=== PATIENT | male | born 1980 | race Caucasian/White ===

== ENCOUNTER 2016-10-31 19:42 | Inpatient (IN) | payer OTHER ==
--- NOTE | ~2016-10-31 | CO ---
Unit #: [id number] #: [id number] Patient: YUDITH CASTILLO [id number] [place] [address] [id number] MR#: [id number] NAME: YUDITH CASTILLO ROOM: [facility] Age: 36 Sex: M Admission Date: 10/31/2016 : 1980 Attending Physician: Slava Pandya M.D. Consultation Date: 11/02/2016 CONSULTATION REPORT SUBJECTIVE Patricio is a 36-year-old with history of IV drug use and hepatitis C. We have been asked to see him for "abnormal labs." In reviewing his labs, the AST/ALT is elevated at 68/76, this would be consistent with his diagnosis of hepatitis C. Dictated by... Latoya Villatoro P.A.-C. for Jameson Ascencio/ton TD: 11/03/2016 02:48 JOB #: [id number] CONSULTATION REPORT Page 1 of 1 X Latoya Villatoro CONSULTATION REPORT
--- NOTE | ~2016-10-31 | PA ---
Unit #: [id number] #: [id number] Patient: YUDITH CASTILLO [id number] [facility] [address] [place] [address] [id number] MR#: [id number] NAME: YUDITH CASTILLO ROOM: [facility] Age: 36 Sex: M Admission Date: 10/31/2016 : 1980 Date of Assessment: 11/01/2016 Attending Physician: Slava Pandya M.D. Admitting Physician: Slava Pandya M.D. Primary Care Physician: Primary Care Physician No PSYCHIATRIC ASSESSMENT DATE 11/01/2016 DISCUSSION The patient is a 36-year-old single white male admitted to the [facility] unit with a history of abuse of heroin and methamphetamine. CHIEF COMPLAINT None given. INFORMANT Patient. RELIABILITY Fair. HISTORY OF PRESENT ILLNESS The patient is a 36-year-old white male admitted with a 4-year history of intravenous heroin abuse. He has been in chemical dependence treatment in the past, but has maintained sobriety for no significant period of time stating that he "went back to the person I was with." Patient reports that because of his heroin use he has lost his job and his home and his children and he is most distressed by this but denies suicidal or homicidal ideation. He denies prior treatment for depressive illness and is no prescribed psychotropic or other medications at this time. He complains of recent poor sleep and denies loss of appetite. PAST PSYCHIATRIC HISTORY Patient was treated at this facility approximately one year ago and maintained sobriety for about one month. PAST MEDICAL HISTORY Noncontributory. MEDICATIONS None. ALLERGIES None. FAMILY HISTORY Noncontributory. Unit #: [id number] #: [id number] Patient: YUDITH CASTILLO SOCIAL HISTORY The patient completed the 9th grade. He is the father of two out of wedlock children. He reports substance use as noted previously and is a smoker. He has been incarcerated in the past on drug related charges. MENTAL STATUS EXAMINATION At this time reveals the patient to be a well developed, well nourished white male appearing his stated age. He appears to be in significant physical distress of opiate withdrawal during interview. He is awake, alert and oriented in all spheres. His mood is mildly dysphoric. His affect is congruent. Speech is generally well and coherent. No gross deficits in memory or cognition noted. Intelligence is judged to be in the average range based on fund of knowledge. The patient is cooperative throughout the interview. He is currently reporting no suicidal or homicidal ideation or psychotic features. Judgment and insight appear to be intact. ASSETS AND LIABILITIES The patient's assets: Motivation for change. Liabilities: Lack of resources. DIAGNOSTIC IMPRESSION 1. Opioid use disorder. 2. Methamphetamine use disorder. TREATMENT PLAN The patient remains hospitalized for safety and stabilization. Routine detoxification protocol for opioids has been initiated. The patient will participate in appropriate magallanes and milieu activities with an estimated stay in the hospital of 3-5 days. I will ask patient's social services counselor to look for possible residential chemical dependence treatment. Dictated by... Slava Pandya M.D. VIC/celia TD: 11/01/2016 14:59 JOB #: [id number] PSYCHIATRIC ASSESSMENT Page 1 of 1 X Slava Pandya MD X PSYCHIATRIC ASSESSMENT
--- NOTE | ~2016-10-31 | PN ---
Unit #: [id number] #: [id number] Patient: YUDITH CASTILLO [id number] [facility] [address] [place] [address] [id number] MR#: [id number] NAME: YUDITH CASTILLO ROOM: [facility] Age: 36 Sex: M Admission Date: 10/31/2016 : 1980 Attending Physician: Slava Pandya M.D. Admitting Physician: Slava Pandya M.D. Primary Care Physician: Primary Care Physician Kaya ADAMS PROGRESS NOTES DATE 11/02/2016 DISCUSSION The patient states that he is feeling a bit better today. He is currently denying suicidal or homicidal ideation and his detox continues uneventfully. Dictated by... Slava Pandya M.D. CB/lexis TD: 11/02/2016 15:42 JOB #: [id number] [facility] PROGRESS NOTES Page 1 of 1 X Slava Pandya MD X PROGRESS NOTE
--- NOTE | ~2016-10-31 | DS ---
Unit #: [id number] #: [id number] Patient: YUDITH CASTILLO [id number] [facility] [address] [place] [address] [id number] MR#: [id number] NAME: YUDITH CASTILLO ROOM: [facility] Age: 36 Sex: M Admission Date: 10/31/2016 : 1980 Discharge Date: 11/03/2016 Attending Physician: Slava Pnadya M.D. DISCHARGE SUMMARY REASON FOR ADMISSION The patient is a 36-year-old single white male, admitted to the [facility] unit for opioid detox. HOSPITAL COURSE The patient was admitted to the [facility] unit and placed on the routine detoxification protocol for opioids. His stay in the hospital was marked only by a transfer to the [address] [place] [address] unit after it was learned that he had been in a romantic relationship with a female peer on the unit prior to admission. By 11/03/2016, the patient's detox was essentially complete and he requested discharge and it was so ordered. FINAL DIAGNOSIS Opioid use disorder. DISPOSITION ON DISCHARGE The patient is discharged on no psychotropic or other medications. FOLLOWUP Followup will take place through the auspices of community mental health resources. PROGNOSIS The patient's prognosis is considered fair. Dictated by... Slava Pandya M.D. CB/ton TD: 11/03/2016 19:35 JOB #: [id number] Unit #: [id number] #: [id number] Patient: YUDITH CASTILLO DISCHARGE SUMMARY Page 1 of 1 X Slava Pandya MD X DISCHARGE SUMMARY
--- NOTE | ~2016-10-31 | HP ---
Unit #: [id number] #: [id number] Patient: YUDITH CASTILLO [id number] [facility] [address] [place] [address] [id number] MR#: [id number] NAME: YUDITH CASTILLO ROOM: [facility] Age: 36 Sex: M Admission Date: 10/31/2016 : 1980 Attending Physician: Slava Pandya M.D. Admitting Physician: Slava Pandya M.D. Primary Care Physician: Primary Care Physician No HISTORY AND PHYSICAL HISTORY OF PRESENT ILLNESS Yudith is a 36-year-old admitted to [facility] because of his drug use. He shoots heroin. He has had other admissions to this facility for the same. PAST MEDICAL HISTORY Long history of opioid abuse to include IV heroin. PAST SURGICAL HISTORY Nothing reported. ALLERGIES No known drug allergies. SOCIAL HISTORY Smokes one pack per day. Denies alcohol. Admits to long history of opioid abuse to include IV heroin. FAMILY HISTORY Medically noncontributory. REVIEW OF SYSTEMS CONSTITUTIONAL: No fever or chills. HEENT: Denies any sore throat, ear pain or runny nose. CARDIOVASCULAR: Denies chest pain, irregular heart rhythm or palpitations. CHEST: Denies shortness of breath or cough. No hemoptysis. GASTROINTESTINAL: Denies nausea, vomiting, diarrhea or chronic constipation. ENDOCRINE: Denies history of increased thirst or urination. No recent significant weight loss or gain. GENITOURINARY: Denies dysuria, frequency, or hematuria. SKIN: Denies any rashes. HEMATOLOGIC: Denies history of increased bleeding or bruising. MUSCULOSKELETAL: Denies any hot, swollen joints. No generalized muscle pain. NEUROLOGIC: Denies problems with vision or speech. No frequent, severe headaches. No numbness, tingling or weakness in any extremities. Denies loss of bladder or bowel control. CURRENT MEDICATIONS Detox protocol. PHYSICAL EXAMINATION GENERAL: Alert, well nourished, in no apparent distress. Unit #: [id number] #: [id number] Patient: YUDITH CASTILLO VITAL SIGNS: Blood pressure 100/60, heart rate 80, respirations 16, temperature 98.6, weight 150, height 6 feet 1 inch. SKIN: Warm and dry without rash or lesion. HEENT: Normocephalic. TMs not viewed. Oral and nasal passages clear. Conjunctivae clear. PERRLA. EOMs intact. NECK: Supple without lymphadenopathy or thyromegaly. HEART: Regular rate and rhythm without murmur. LUNGS: Clear. ABDOMEN: Soft, nontender. : Not done. EXTREMITIES: No evidence of cyanosis, clubbing or edema. Moves all without focal deficit. NEUROLOGICAL: Grossly within normal limits. Cranial Nerves: II: Visual panda are intact. III, IV AND : Extraocular movements are intact. Pupils are equal, round and reactive to light. V: Facial sensation is grossly normal. VII: Facial movements and expression are normal. VIII: Auditory acuity grossly intact. IX, X: Uvula is midline. Phonation is normal. XI: Patient shrugs shoulders and turns head normally. XII: Tongue protrudes in the midline. Sensory and Motor Function: Sensory and motor sensation is grossly normal. Motor: moves all extremities well. Coordination: Gait is normal. Deep Tendon Reflexes: Intact. IMPRESSION Psychiatric admission. RECOMMENDATIONS PSYCHIATRIC: Per psychiatrist. MEDICAL: I see no contraindication to participating in facility activities. MEDICAL PROGNOSIS Good. MEDICAL CONDITION Stable. Dictated by... Maryjo Chavez/celia TD: 11/01/2016 17:05 JOB #: [id number] Unit #: [id number] #: [id number] Patient: YUDITH CASTILLO HISTORY AND PHYSICAL Page 1 of 1 X Latoya Villatoro HISTORY AND PHYSICAL
[2016-11-01 09:50] LABS: BASOPHIL# 0.1 X10e3 (0-0.3); EOSINOPHIL# 0.1 X10e3 (0-0.7); EOSINOPHIL% 3.1 % (0.0-7.0); HEMATOCRIT 42.4 % (38.0-50.0); LYMPHOCYTE# 1.7 X10e3 (1.0-3.5); MEAN CELL VOLUME 89.3 FL (83-96); MEAN CORPUSCULAR HEMOGLOBIN 29.5 PG (28-34); MEAN PLATELET VOLUME 9.5 FL (6.5-11.5); MONOCYTE# 0.6 X10e3 (0-1.0); MONOCYTE% 12.6 % (3.0-12.0); NEUTROPHIL% 44.3 % (40-75); PLATELET COUNT 185 X10e3 (140-420); RED BLOOD COUNT 4.75 X10e (3.90-5.60); RED CELL DISTRIBUTION WIDTH 12.8 % (11.0-15.5); WHITE BLOOD COUNT 4.5 X10e3 (4.0-10.5)
[2016-11-01 09:51] LABS: DIFF IND NO
[2016-11-01 10:04] LABS: THYROID STIMULATING HORMONE 0.3 uIU/ml (0.34-5.60)
[2016-11-01 10:25] LABS: ALBUMIN SERUM 3.9 g/dL (3.5-5.0); BILIRUBIN,TOTAL 1.3 mg/dL (0.2-2.0); BUN/CREATININE RATIO 12.22; CALCIUM SERUM 9.3 mg/dL (8.4-10.2); CREATININE SERUM 0.9 mg/dL (0.6-1.4); GLOM FILT RATE Estimated 109.5 mL/min (>60); PROTEIN TOTAL SERUM 6.8 g/dL (6.0-8.3)
[2016-11-01 12:25] LABS: URINE APPEARANCE TURBID; URINE BILIRUBIN NEG (NEG); URINE BLOOD NEG (NEG); URINE COLOR YELLOW; URINE GLUCOSE NEG (NEG); URINE KETONE NEG (NEG); URINE LEUKOCYTE ESTERASE 2+ (NEG); URINE NITRATE NEG (NEG); URINE PH 5.5 (5-8); URINE PROTEIN NEG (NEG)
[2016-11-01 12:27] LABS: URINE BACTERIA AUWI 4+ (NEGATIVE); URINE SQUAMOUS EPITHELIAL CELL OCC /[HPF]
[2016-11-01 12:53] LABS: AMPHETAMINE NEG (NEG); BARBITURATES NEG (NEG); BENZODIAZEPINES NEG (NEG); COCAINE NEG (NEG); MARIJUANA NEG (NEG); OPIATES POS (NEG); TRICYCLIC ANTIDEPRESSANTS NEG (NEG); U METHADONE NEG (NEG)
[2016-11-01 13:03] LABS: URINE MUCUS PRESENT
[2016-11-01 13:04] LABS: UWBCS1 AUWI NEG (0-5)
[2016-11-06 11:41] LABS: HA AB IGM (HEPPAN) Nonreactive (Nonreactive); HB CORE AB IGM (HEPPAN) Nonreactive (Nonreactive); HB S AG (HEPPAN) Nonreactive (Nonreactive); HEP C AB (HEPPAN) Reactive (Nonreactive)
== END 2016-11-03 12:25 | disposition home or self-care (01) | DRG 897 ==
LOC: P1E 19:42 → P1S 11-02 20:23
PROVIDERS: Specialist
PROC: HZ2ZZZZ Detoxification Services for Substance Abuse Treatment (ICD-10-PCS; principal; 2016-10-31)
DX: F11.20 Opioid dependence, uncomplicated (principal); F15.20 Other stimulant dependence, uncomplicated; F17.200 Nicotine dependence, unspecified, uncomplicated; B19.20 Unspecified viral hepatitis C without hepatic coma
CPT/HCPCS: 80053; 80074; 80307; 81003; 84439; 84443; 85025; 86592; 87806